=== PATIENT | male | born 1995 | race Caucasian/White ===

== ENCOUNTER 2019-02-06 19:44 | Emergency (ER) | payer OTHER, SELFPAY ==
[2019-02-06 19:49] VITALS: BP 128/74; PULSE 88; RESP 18; TEMP 37; O2SAT 100
[2019-02-06] MEDS: TET,DIPH,PERTUSS(ACELL),VAC/PF 0.5 ML SYRINGE IM (21:29)
[2019-02-06] MEDS: ERYTHROMYCIN OPHTH 1 GM OINT 1 APPLIC EYE-LEFT (22:32)
[2019-02-06 22:41] VITALS: BP 119/65; PULSE 72; RESP 15; O2SAT 99
--- NOTE | 2019-02-06 23:13 | ED_ITS ---
HPI - Eye Problem <LEIGH Hartley - Last Filed: 02/06/19 23:13> General Chief complaint: Eye Problems Stated complaint: Metal in left eye Time Seen by Provider: 02/06/19 20:51 Source: patient and family Mode of arrival: ambulatory Limitations: no limitations History of Present Illness HPI Narrative: Patient is a 23-year-old male who does not know when his last tetanus was who presents with a chief complaint of metal in his left eye. 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 He was seen by his eye provider yesterday who stated he had metal in his eye and should be seen. He is at know when his last tetanus was. He complains of sometimes feeling like he has a foreign body. He denies any visual deficit, double vision or blurry vision. Does not wear contacts. Related Data Previous Rx's Medication Instructions Recorded erythromycin 1 applictn EYE-LEFT QID 10 Days #1 02/06/19 gram Allergies Allergy/AdvReac Type Severity Reaction Status Date / Time No Known Drug Allergies Allergy Verified 02/06/19 19:49 Review of Systems <ERICKA Hartley - Last Filed: 02/06/19 23:13> Review of Systems GENERAL: Denies chills, fatigue, malaise, fever, sweats. HEENT: See HPI RESPIRATORY: Denies dyspnea, cough, wheezing, hemoptysis, sputum. CARDIOVASCULAR: Denies chest pain, palpitations, orthopnea, edema, GASTROINTESTINAL: Denies nausea, vomiting, abdominal pain, diarrhea, constipa tion, melena. : Denies dysuria, frequency, incontinence, hematuria, urinary retention. MUSCULOSKELETAL: denies weakness, joint pain, or bony pain SKIN: Denies rash, skin lesions, or other NEUROLOGIC: Denies weakness, headache, numbness, change in speech, confusion, seizures, incoordination. PSYCHIATRIC: No concerning psychosocial issues. 12 point review of systems is negative except for those stated above Exam <LEIGH Hartley - Last Filed: 02/06/19 23:13> Narrative Exam Narrative: GENERAL: This is a well-nourished, well-developed patient, acute distress HEAD: Atraumatic. Normocephalic. No temporal or scalp tenderness. EYES: Pupils equal round and reactive. Extraocular motions intact. No scleral icterus. No injection or drainage. ENT: Nose without bleeding, purulent drainage or septal hematoma. Throat without erythema, tonsillar hypertrophy or exudate. Uvula midline. Airway patent. NECK: Trachea midline. No JVD or lymphadenopathy. Supple, nontender, no meningeal signs. CARDIOVASCULAR: Regular rate and rhythm RESPIRATORY: No cough. No increased respiratory effort. EXTREMITIES: No clubbing, cyanosis, or edema. No joint tenderness, effusion, or edema noted. BACK: Nontender without deformity or crepitance. No flank tenderness. NEURO: AOx3. SKIN: No rash or erythema. Initial Vital Signs Initial Vital Signs: Vital Signs Temperature 98.6 F 02/06/19 19:49 Pulse Rate 88 02/06/19 19:49 Respiratory Rate 18 02/06/19 19:49 Blood Pressure 128/74 02/06/19 19:49 Pulse Oximetry 100 02/06/19 19:49 <Luke Goldsmith DO - Last Filed: 02/07/19 02:44> Initial Vital Signs Initial Vital Signs: Vital Signs Temperature 98.6 F 02/06/19 19:49 Pulse Rate 88 02/06/19 19:49 Respiratory Rate 18 02/06/19 19:49 Blood Pressure 128/74 02/06/19 19:49 Pulse Oximetry 100 02/06/19 19:49 Procedures <LEIGH Hartley - Last Filed: 02/06/19 23:13> Foreign Body EYE Time Out performed: Yes Location: eye (L) Topical anesthetic used: proparacaine Foreign body: metal Evidence of corneal penetration: No Technique: cotton tip swab Procedure performed under: slit-lamp Post-procedure medication: ophthalmic antibiotic Patient tolerated procedure: well Course <LEIGH Hartley - Last Filed: 02/06/19 23:13> Orders Ordered: Discontinued Medications Diphtheria/Tetanus/Acell Pertussis (Adacel) 0.5 ml IM .ONCE ONE Stop: 02/06/19 21:25 Last Admin: 02/06/19 21:29 Dose: 0.5 ml Erythromycin (Erythromycin Ophth Oint) 1 applic EYE-LEFT NOW ONE Stop: 02/06/19 22:18 Last Admin: 02/06/19 22:32 Dose: 1 applic Vital Signs - 8 hr 02/06/19 19:49 02/06/19 22:41 Temperature 98.6 F Pulse Rate 88 72 Respiratory Rate 18 15 Blood Pressure 128/74 119/65 Pulse Oximetry 100 99 <Luke Goldsmith DO - Last Filed: 02/07/19 02:44> Orders Ordered: Discontinued Medications Diphtheria/Tetanus/Acell Pertussis (Adacel) 0.5 ml IM .ONCE ONE Stop: 02/06/19 21:25 Last Admin: 02/06/19 21:29 Dose: 0.5 ml Erythromycin (Erythromycin Ophth Oint) 1 applic EYE-LEFT NOW ONE Stop: 02/06/19 22:18 Last Admin: 02/06/19 22:32 Dose: 1 applic Vital Signs - 8 hr 02/06/19 19:49 02/06/19 22:41 Temperature 98.6 F Pulse Rate 88 72 Respiratory Rate 18 15 Blood Pressure 128/74 119/65 Pulse Oximetry 100 99 MDM - Eye Problem <LEIGH Hartley - Last Filed: 02/06/19 23:13> MDM Narrative Medical decision making narrative: The patient 23-year-old male who presents with chief complaint of a foreign body to his eye. His tetanus was updated. The foreign body was removed by Dr. Goldsmith. He was given post erythromycin. I discussed at length following up with his primary care provider as well as c oming back to the emergency department for any acute concerns such as visual difficulties. Patient had no questions or concerns upon discharge. 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 Please monitor for worsening of pain, any acute concerns and changes in vision. Please follow up with primary care provider. Prescriptions: New erythromycin 5 mg/gram (0.5 %) ointment 1 applictn EYE-LEFT QID 10 Days Qty: 1 RF: 0 <DO Johnny Mckoy Last Filed: 02/07/19 02:44> Cosign ED Attending Cosignature Attestation: I evaluated the patient here in the emergency department. He did have a small foreign body in his left eye at approximately the 9 o'clock position. This was removed under slit lamp observation with a cotton tip applicator. The patient tolerated the procedure well. No other foreign bodies were noted. he was sent home with topical antibiotics and was given return precautions.
== END 2019-02-06 22:42 | disposition home or self-care (01) ==
PROVIDERS: Emergency Provider Nurse Practitioner Family
DX: T15.92XA Foreign body on external eye, part unspecified, left eye, initial encounter (principal); Z23 Encounter for immunization
CPT/HCPCS: 65205; 90471; 99282; 99283; 90715